=== PATIENT | male | born 1935 | race Caucasian/White ===

== ENCOUNTER 2019-05-18 10:06 | Observation (INO) ==
[~2019-05-18 10:06] MED LIST: BACITRACIN INJ 50,000 UNIT VIAL ONE; BUPIVACAINE 0.25% 30 ML VIAL ONE; LIDOCAINE HCL 1% 20 ML VIAL ONE
[2019-05-18] MEDS ORDERED: fentaNYL citrate 100 MCG/2 ML VIAL ONE (10:24)
[2019-05-18] MEDS ORDERED: MIDAZOLAM HCL 5 MG/ML 1 ML VIAL ONE (10:24)
--- NOTE | 2019-05-18 10:52 | History & Physical Bridge Note ---
Date of Service May 18, 2019 History & Physical Bridge Note I have examined the patient, reviewed the History & Physical and in the interval since the performance of the History & Physical I have noted the following changes of clinical significance: no changes noted
--- NOTE | 2019-05-18 10:52 | Pre Anesthesia Assessment ---
Date of Service May 18, 2019 Pre Sedation Assessment Vital Signs Temp Pulse Resp BP Pulse Ox 05/18/19 10:16 36.7 C 55 L 18 160/108 H 98 Cardiovascular + regular rate Respiratory + respiratory effort normal Pre-Sedation Airway Assessment Smoking Status: Never smoker Hx Sleep Apnea: No Hx Difficult Intubation: No Short, Thick Neck: No Thyromental Distance: > or= 3.5 Finger Breadths Oral Cavity: + WNL Mallampati Class: III ASA: ASA3 NPO Status Date of Last Intake of Fluids: 05/17/19 Date of Last Intake of Solid Food: 05/17/19 Procedure Planning Contraindications for Sedation: none Current Medications Reviewed: Yes Notes The planned sedation has been discussed with the patient. Informed Consent was obtained. I have identified the patient, determined the appropriateness of sedation and have assessed the patient immediately prior to the procedure. All medicine(s) and interventions are by my order.
[2019-05-18] MEDS ORDERED: CLINDAMYCIN PHOS 300 MG/2 ML VIAL ONE (10:55)
--- NOTE | 2019-05-18 12:08 | Electrophysiology Report ---
Date of Service May 18, 2019 Electrophysiology Procedure Electrophysiology Procedure Report Procedure performed: Implantation of dual-chamber permanent pacemaker Staff counter tacker: Carlos Melendez MD Indication: The patient is an 83-year-old gentleman with a history of dizziness. 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 Based on the symptoms and EKG findings he was felt to be a good candidate for permanent pacemaker due to symptomatic nonreversible AV node dysfunction. Dual-chamber device was selected as he is currently in sinus rhythm and wished to maintain AV synchrony. Procedure in detail: The patient was informed of the risks benefits and alternatives to the intended procedure and she wished to proceed. He was taken to the electrophysiology suite in a fasting state. A preoperative antibiotic had been administered. The patient was monitored electrocardiographically throughout today's procedure and conscious sedation was administered per protocol. The left upper pectoral area is prepped and draped in usual sterile fashion. This area was anesthetized using subcutaneous administration of a xylocaine solution. An incision was made at this site and carried down to the prepectoralis fascia using sharp dissection. Electrocautery was also employed for dissection as well as for hemostasis. A device pocket was fashioned tissues above the pectoralis muscle. Subsequent to this maneuver the left axillary vein was accessed using modified Seldinger technique. Sheaths were placed over guidewires at this site and used to facilitate passage of the pacing leads to the respective chambers under fluoroscopic guidance. This included right atrial and right ventricular leads. Adequate sensing and threshold parameters were obtained prior to Active fixation of the leads to the endocardial surface. The proximal portion leads were then sutured the prepectoral fascia using nonabsorbable suture. The device pocket was irrigated with antibiotic solution. The leads were then attached to the de vice. The device and leads were then placed in the pocket and pocket was closed in 3 layers of absorbable suture. Steri-Strips and sterile dressing were applied. The device was tested noninvasively prior to conclusion the procedure. The patient tolerated procedure well there no immediate complications. Equipment used: New pulse generator: Aircraft Maintenance Supervisor Medrumr: turn off the lights. Model number: [id number] serial number [id number] Right atrial lead: Aircraft Maintenance Supervisor Medrumr: turn off the lights. Model number: [id number] serial number [id number] Right ventricular lead: Aircraft Maintenance Supervisor Medrumr: turn off the lights. Model number: [id number] serial number [id number] Measured data: Right atrial lead: P waves measure 3.4 mV. Pacing threshold 1.2 V at 0.5 ms with a pacing impedance of 705 ohms Right ventricular lead: R waves measured 6.1 mV pacing threshold was 1.5 V at 0.5 ms with a pacing impedance of 1187 ohms Impression: Successful implantation of chamber permanent pacemaker [facility] Electrophysiology codes Pacing Procedure 1: Pacin Insert/Replace Pacer A & V
[2019-05-18] MEDS ORDERED: ACETAMINOPHEN 325 MG TAB PO PRN (12:09)
--- NOTE | 2019-05-18 12:09 | Post Anesthesia Assessment ---
Date of Service May 18, 2019 Post Sedation Assessment Vital Signs Temp Pulse Resp BP Pulse Ox 05/18/19 10:16 36.7 C 55 L 18 160/108 H 98 Recovery Score Activity: Moves 4 extremities Respiration: Deep Breath/Cough Circulation: +/-20% PreAnes Value Consciousness: Fully Awake Oxygen Saturation: > 92% On Room Air Discharge Sedation Level of Care: Fast Track Phase II Post Sedation Plan On clinical assessment, the patient appears to have tolerated the sedation without complications. Patient is recovering as anticipated. Patient will continue to be monitored by nursing and may be discharged when sedation discharge criteria are met per below protocol. Upon Completions of procedure up to 15 minutes continue every 5 minute vital signs and the P.A.R. score; then discharge to a Phase I or Fast Track to Phase II per the following guidelines: * Discharge Patient to appropriate Phase II area if PAR is 8 or greater or return to pre- procedure baseline. The post - procedure orders will be as directed. * If PAR score is less than 8 or not return to pre-procedure baseline then patient will follow Phase I monitoring till PAR is reached for Phase II. The Phase I may be done in procedure room or may call to secure a Phase I area. * If naloxone or flumazenil are used for reversal, hold in Phase I for continued monitoring from when last reversal dose was given for a minimum of 60 minutes or longer pending the nurse and/or physician discretion of patient condition before discharge to Phase II. Please call the Sedation Physician to re-evaluate and complete post-note for discharge to Phase II area. Do NOT discharge from procedure sedation or Phase 1 until post- sedation evaluation note is complete by procedure /sedation MD Sedation Discharge Instructions to be given to the patient at discharge to home.
[2019-05-18] MEDS: OXYCODONE HCL IR 5 MG TAB (IMMEDIATE RELEASE) PO PRN (17:31)
[2019-05-18] MEDS: CLINDAMYCIN 600 MG in DEXTROSE 5% 50 ML IV SCH (20:04)
--- NOTE | 2019-05-18 20:15 | Electrocardiogram Report ---
Test Reason : Blood Pressure : / mmHG Vent. Rate : 061 BPM Atrial Rate : 048 BPM P-R Int : 000 ms QRS Dur : 174 ms QT Int : 504 ms P-R-T Axes : 070 -74 083 degrees QTc Int : 507 ms Sinus tachycardia with second degree AV block and competing demand pacemaker Abnormal ECG When compared with ECG of 10-MAY-2019 16:45, Electronic ventricular pacemaker has replaced Sinus rhythm Vent. rate has decreased BY 31 BPM Confirmed by Carlos Melendez ([id number]) on 05/18/2019 8:15:02 PM Referred By: Kermit Melendez Confirmed By:Gilberto Melendez
[2019-05-19] MEDS: OXYCODONE HCL IR 5 MG TAB (IMMEDIATE RELEASE) PO PRN (01:40)
[2019-05-19] MEDS: CLINDAMYCIN 600 MG in DEXTROSE 5% 50 ML IV SCH (04:25)
--- NOTE | 2019-05-19 06:25 | XRay Report ---
XR chest 2V PA/lateral HISTORY: 83 years-old Male EXACT TIME ORDERED Evaluate for pneumothorax and l status post placement of a left subclavian pacer COMPARISON: None available TECHNIQUE: PA and lateral views of the chest FINDINGS: Cardiomediastinal and hilar silhouettes are within normal limits. Left subclavian pacer has been plac ed, leads overlying the expected locations of the right atrium and right ventricle. Leads appear to b e intact. Lateral view limited secondary to upper extremity positioning. Mild linear subsegmental bib asilar atelectasis. Calcified plaque of the thoracic aortic arch. No pneumothorax, pleural effusion o r overt pulmonary edema. Degenerative changes of the shoulders and spine. IMPRESSION: Status post placement of a left subclavian pacer. No postprocedural pneumothorax identifi ed. ACT 112: Negative or not required by law. The above report was generated using voice recognition software. It may contain grammatical, syntax o r spelling errors. Electronically signed by: Olegario Clements M.D. 05/19/2019 6:23 AM
[2019-05-19] MEDS ORDERED: FINASTERIDE 5 MG TAB PO SCH (09:00)
== END 2019-05-19 11:02 | disposition home or self-care (01) ==
LOC: EP 10:06 → 2S 10:06